=== PATIENT | male | born 1955 | race Caucasian/White ===

== ENCOUNTER → 2019-05-31 | Outpatient (CLI) | payer OTHER ==
[~2019-05-31] MED LIST: ALBIPROI INH; ALBU90OI INH; AMOX500 PO; AZIT250; BP PO; BUSP15; CEPH500 PO; CLON.5; DIPH25; HYDACE10 PO; HYDACE5; HYDACE5 PO; IBUP800; NAPR375 PO; OMEP20ER PO; OXYACE5T PO; OXYACE7.5T PO; PENVK500 PO; PRED20; PRED20 PO; RANI150; RXHYDGUAS PO; SULFAMETHOXAZOLE/TMP; SULTRIDS PO
== END | disposition home or self-care (01) ==
LOC: LAB SHORT 17:38 → LAB EV 17:38
DX: N39.0 Urinary tract infection, site not specified (principal)
CPT/HCPCS: 87086